=== PATIENT | male | born 1975 | race Caucasian/White ===

== ENCOUNTER 2017-01-12 10:25 | Emergency (ER) | payer BC, OTHER ==
[2017-01-12 10:30] VITALS: BP 134/82
[2017-01-12] MEDS ORDERED: Tetan/Diph/Pertus SYR(Tdap)* 0.5 ML SYR(BOOSTRIX) use SYR IM ONE (11:39)
[2017-01-12] MEDS ORDERED: Ibuprofen TAB* 400 MG PO ONE (11:39)
--- NOTE | 2017-01-12 12:32 | ED ---
Laceration/Wound HPI - HPI Summary HPI Summary: Patient works in [employer] [facility] [facility] [employer] and cut his left palm on the serated edge of a seran wrap contiainer. He had immediate pain and controlled bleeding with direct pressure. His tetanus is not up to date and he has not taken any medication for pain. He has movement in all digits. - History of Current Complaint Stated Complaint: LT HAND LAC Time Seen by Provider: 01/12/17 10:36 Hx Obtained From: Patient Mechanism of Injury: Sharp/Blunt Trauma Onset/Duration: Sudden Onset Aggravating: Movement Alleviating: Compression Timing: Constant Onset Severity: Moderate Current Severity: Mild Pain Intensity: 3 Associated Signs & Symptoms: Pain Related Hx: Dominant Hand (Left) - Allergy/Home Medications Allergies/Adverse Reactions: Allergies Allergy/AdvReac Type Severity Reaction Status Date / Time No Known Allergies Allergy Verified 09/02/13 14:03 PMH/Surg Hx/FS Hx/Imm Hx Infectious Disease History: No Infectious Disease History: Denies: Traveled Outside the in Last 30 Days - Family History Known Family History: Positive: None - Social History Occupation: Employed Full-time Lives: With Family Alcohol Use: Occasionally Substance Use Type: Reports: None Smoking Status (MU): Former Smoker Review of Systems Positive: Other - 1.5 cm laceration to palmar aspect at the base of the left fifth digit Negative: Weakness, Paresthesia, Numbness All Other Systems Reviewed And Are Negative: Yes Physical Exam Triage Information Reviewed: Yes Vital Signs On Initial Exam: Initial Vitals Temp Pulse Resp BP Pulse Ox 98.3 F 104 16 134/82 99 01/12/17 10:28 01/12/17 10:28 01/12/17 10:28 01/12/17 10:28 01/12/17 10:28 Vital Signs Reviewed: Yes Appearance: Positive: Well-Appearing, Well-Nourished, Pain Distress Skin: Positive: Warm, Skin Color Reflects Adequate Perfusion, Dry, Tender - 1.5 cm laceration to palmar aspect at the base of the left fifth digit, Soft Head/Face: Positive: Normal Head/Face Inspection Eyes: Positive: EOMI, ARVIND, Conjunctiva Clear ENT: Positive: Hearing grossly normal Respiratory/Lung Sounds: Positive: Breath Sounds Present Cardiovascular: Positive: RRR Musculoskeletal: Positive: Strength/ROM Intact - FROM all digits Neurological: Positive: Sensory/Motor Intact, Alert, Oriented to Person Place, Time, NV Bundle Intact Distally Psychiatric: Positive: Affect/Mood Appropriate AVPU Assessment: Alert - [place] Coma Scale Coma Scale Total: 15 Procedures - Laceration/Wound Repair 1 Location: upper extremity - palmar aspect at the base of the left fifth digit Description: Linear Anesthesia: Local, 2.0%, Lido Length, Depth and Shape: 1.5cm long, 3mm wide, 3mm deep Betadine Prep?: No Irrigated w/ Saline (ccs): 200 Laceration/Wound Explored: clean Closure: Single Layer Debridement: minimal Suture Type: Nylon - 5.0 Number of Sutures: 7 Layer Closure?: No Sterile Dressing Applied?: Yes Diagnostics - Vital Signs Vital Signs Temp Pulse Resp BP Pulse Ox 01/12/17 10:28 98.3 F 104 16 134/82 99 - Laboratory Lab Statement: Any lab studies that have been ordered have been reviewed, and results considered in the medical decision making process. Laceration Repair Course/Dx - Differential Dx Differental Diagnoses: Abrasion, Avulsion, Cellulitis, Dehiscence, Hematoma, Laceration, Puncture Wound - Clinical Impression Provider Diagnoses: Laceration Discharge - Discharge Plan Condition: Stable Disposition: HOME Patient Education Materials: Finger Laceration (ED) Referrals: [facility] [Outside] Additional Instructions: Keep your dressing clean, dry and in place for the next 24 hours. You may then remove and shower. Pat dry and cover with a clean, dry band-aid if you are going to be in a "dirty" environment, otherwise it can remain open to air. Do not soak the wound in any body of water until the sutures are removed. Elevate the hand above your heart and use Ibuprofen 600mg three times daily with meals for the next 5-7 days to reduce pain and swelling. Follow-up with your primary care provider or return to the emergency department in 10-12 days for suture removal. Return to the emergency department sooner if your symptoms worsen
== END 2017-01-12 12:52 | disposition home or self-care (01) ==
LOC: ED 10:25
DX: S61.412A Laceration without foreign body of left hand, initial encounter (principal); W45.8XXA Other foreign body or object entering through skin, initial encounter; Y93.9 Activity, unspecified; Y92.233 Cafeteria of hospital as the place of occurrence of the external cause; Y99.9 Unspecified external cause status
CPT/HCPCS: 12001; 99281

== ENCOUNTER 2017-01-26 09:49 | Emergency (ER) | payer OTHER ==
[2017-01-26 09:53] VITALS: BP 122/82
--- NOTE | 2017-01-26 10:42 | ED ---
ED Suture/Wound Check - HPI Summary HPI Summary: 42 male presents requesting suture removal. Patient had 7 sutures in left palmar hand at PIP joint. Patient has no complaints at this time, states he thinks it healed nicely. Denies redness, swelling and discharge. Was told to have suture removed after 12 days. Today is day 14. Denies numbness/tingling, weakness. - History Of Current Complaint Chief Complaint: EDLacSutureRecheck Stated Complaint: REMOVAL OF STITCHES Time Seen by Provider: 01/26/17 10:02 Hx Obtained From: Patient Pain Intensity: 0 Pain Scale Used: 0-10 Numeric Procedure Type: sutures Surgery Date: 01/12/17 - Allergies/Home Medications Allergies/Adverse Reactions: Allergies Allergy/AdvReac Type Severity Reaction Status Date / Time No Known Allergies Allergy Verified 09/02/13 14:03 PMH/Surg Hx/FS Hx/Imm Hx Endocrine/Hematology History: Denies: Hx Diabetes Cardiovascular History: Denies: Hx Hypertension Respiratory History: Denies: Hx Asthma - Surgical History Surgery Procedure, Year, and Place: none Infectious Disease History: No Infectious Disease History: Denies: Traveled Outside the [place] in Last 30 Days - Family History Known Family History: Positive: None - Social History Alcohol Use: Occasionally Substance Use Type: Reports: None Smoking Status (MU): Former Smoker Review of Systems Constitutional: Negative Cardiovascular: Negative Respiratory: Negative Gastrointestinal: Negative Positive: Other - mild soreness at area of wound Skin: Negative Neurological: Negative Psychological: Normal All Other Systems Reviewed And Are Negative: Yes Physical Exam Triage Information Reviewed: Yes Vital Signs On Initial Exam: Initial Vitals Temp Pulse Resp BP Pulse Ox 98.3 F 102 18 122/82 96 01/26/17 09:50 01/26/17 09:50 01/26/17 09:50 01/26/17 09:50 01/26/17 09:50 tachycardia noted, however normal on physical exam of 89bpm Vital Signs Reviewed: Yes Appearance: Positive: Well-Appearing Skin: Positive: Warm, Skin Color Reflects Adequate Perfusion - <2 second cap refill, Dry. Negative: Pale, Weeping Skin/Lesions, Erythema @ Head/Face: Positive: Normal Head/Face Inspection Eyes: Positive: Conjunctiva Clear ENT: Positive: Normal ENT inspection, Hearing grossly normal Neck: Positive: Supple, Nontender, No Lymphadenopathy Respiratory/Lung Sounds: Positive: Clear to Auscultation, Breath Sounds Present Cardiovascular: Positive: Normal, RRR, Pulses are Symmetrical in both Upper and Lower Extremities Musculoskeletal: Positive: Normal, Strength/ROM Intact, Pain @ - minimal pain on palpation of area of healing laceration, Other - appears to being healing nicely, 7 sutures removed without complication. lacearation is well approximated , without erythema, discharge, and edema.. Negative: Edema Left, Edema Right Neurological: Positive: Normal, Sensory/Motor Intact, Alert, Oriented to Person Place, Time, CN Intact II-III, Reflexes Intact, NV Bundle Intact Distally Psychiatric: Positive: Normal Diagnostics - Vital Signs Vital Signs Temp Pulse Resp BP Pulse Ox 01/26/17 09:50 98.3 F 102 18 122/82 96 - Laboratory Lab Statement: Any lab studies that have been ordered have been reviewed, and results considered in the medical decision making process. Course/Dx - Course Course Of Treatment: 7 sutures removed from base of left thumb without complication. wound appears to be healed nicely. patient is aware of worsening signs and symptoms to be aware of. - Differential Diagnoses Differential Diagnoses: Cellulitis, Dehiscence, Healing Wound, Suture Removal - Clinical Impression Provider Diagnoses: Encounter for removal of sutures Discharge - Discharge Plan Condition: Improved Disposition: HOME Patient Education Materials: Stitches Removal (ED) Referrals: No Primary Care Phys,NOPCP [Primary Care Provider] - [facility] [place] [facility] [Outside] Additional Instructions: IF you develop signs of swelling, redness, or discharge please seek medical attention to rule out infection. Be gently with the wound and the area as it is still healing. If the wound appears to be re-opening please return to ED.
== END 2017-01-26 11:20 | disposition home or self-care (01) ==
LOC: ED 09:49
DX: Z48.02 Encounter for removal of sutures (principal)

== ENCOUNTER → 2017-05-12 19:27 | Emergency (ER) | payer BC, OTHER ==
[2017-05-12 20:20] LABS: Hematocrit 48 % (42-52); Hemoglobin 16.6 g/dl (14.0-18.0); Mean Corpuscular HGB Conc 34 g/dl (31-36); Mean Corpuscular Hemoglobin 31 pg (27-31); Mean Corpuscular Volume 90 fL (80-94); Mean Platelet Volume 8 um3 (7.4-10.4); Red Blood Count 5.35 10^6/ul (4.0-5.4); Red Cell Distribution Width 13 % (10.5-15); White Blood Count 10.6 10^3/ul (3.5-10.8)
[2017-05-12 20:31] LABS: ALT 16 U/L (7-52); AST 15 U/L (13-39); Albumin 4.3 g/dL (3.2-5.2); Alkaline Phosphatase 35 U/L (34-104); Anion Gap 11 mmol/L (2-11); BUN/Creatinine Ratio 9.8 (8-20); Blood Urea Nitrogen 9 mg/dL (6-24); CO2 Carbon Dioxide 23 mmol/L (22-32); Calcium 9.3 mg/dL (8.6-10.3); Chloride 100 mmol/L (101-111); Creatine Kinase 189 U/L (10-223); EGFR African American 116.6 (>60); EGFR Non-African American 90.7 (>60); Globulin 2.6 g/dL (2-4); Glucose 95 mg/dL (70-100); Potassium 3.4 mmol/L (3.5-5.0); Sodium 134 mmol/L (133-145); Total Protein 6.9 g/dL (6.4-8.9)
[2017-05-12 20:55] LABS: Acetaminophen < 15 mcg/mL; Alcohol < 10 mg/dL (<10); Salicylate < 2.50 mg/dL (<30)
[2017-05-12 21:01] LABS: Urine Bilirubin Negative (Negative); Urine Glucose Negative (Negative); Urine Nitrite Negative (Negative)
[2017-05-12 21:06] LABS: Benzodiazepine Urine Screen None Detected (None Detect)
--- NOTE | 2017-05-12 22:38 | ED ---
Ynes Alegria Thomas, scribed for Robbin Salgado MD on 05/12/17 at 2000 . Psychiatric Complaint - HPI Summary HPI Summary: Pt is a 42 y/o M presenting to the ED with psychiatric complaints and insomnia. He notes that he is tired and that he did not sleep since 4am yesterday. He says that it is not normal for him to be unable to get to sleep. Twice this week he has been unable to sleep for 36+ hours. Additionally c/o "crazy thoughts ", auditory hallucinations, palpitations, paranoia, decreased appetite. The pt denies any suicide attempts, abdominal pain. He says he used to drink heavily on and off and that he is drinking now. He recently began using tobacco again. PMHx: depression. He does not have FHx of depression, bipolar disorder. He used to take Zyprexa. He is not currently on antidepressants. He notes that he has been hospitalized before. He has not eaten today. - History Of Current Complaint Chief Complaint: EDMentalHealth Time Seen by Provider: 05/12/17 19:45 Hx Obtained From: Patient Onset/Duration: Lasting Days - sleeping difficulties began a week ago Timing: Intermittent Episode Lasting - 2 episodes of 36-hour no sleep this week Character: Manic Associated Signs And Symptoms: Positive: Paranoid Behavior, Sleep Disturbance, Appetite Change Related History: Positive For: Prior Psychiatric Issues - Depression - Allergies/Home Medications Allergies/Adverse Reactions: Allergies Allergy/AdvReac Type Severity Reaction Status Date / Time No Known Allergies Allergy Verified 09/02/13 14:03 PMH/Surg Hx/FS Hx/Imm Hx Previously Healthy: No Endocrine/Hematology History: Denies: Hx Diabetes Cardiovascular History: Denies: Hx Hypertension Respiratory History: Denies: Hx Asthma - Surgical History Surgery Procedure, Year, and Place: none Infectious Disease History: No Infectious Disease History: Denies: Traveled Outside the [place] in Last 30 Days - Family History Known Family History: Positive: Other - NEG: depression, bipolar Negative: Hypertension, Diabetes - Social History Alcohol Use: Occasionally Substance Use Type: Reports: None Hx Tobacco Use: Yes Smoking Status (MU): Current Every Day Smoker - resumed smoking recently Review of Systems Positive: Other - POS: decreased appetite Positive: Palpitations Negative: Abdominal Pain Psychological: Other - POS: sleeping difficulties, "crazy thoughts", auditory hallucinations, paranoia. NEG: suicide attempts All Other Systems Reviewed And Are Negative: Yes Physical Exam - Summary Physical Exam Summary: The patient is well-nourished in no acute distress and in no acute pain. The skin is warm and dry and skin color reflects adequate perfusion. No cuts on arms. HEENT: The head is normocephalic and atraumatic. The pupils are equal and reactive. The conjunctivae are clear and without drainage. Nares are patent and without drainage. Mouth reveals moist mucous membranes and the throat is without erythema and exudate. Neck is supple with full range of motion and non-tender. There are no carotid bruits. There is no neck vein distension. Respiratory: Chest is non-tender. Lungs are clear to auscultation and breath sounds are symmetrical and equal. Cardiovascular: Regular rhythm. Rate is tachycardic. There is no murmur or rub auscultated. There is no peripheral edema and pulses are symmetrical and equal. Abdomen: The abdomen is soft and non-tender. There are normal bowel sounds heard in all four quadrants and there is no organomegaly palpated. Musculoskeletal: There is no back pain noted. Extremities are non-tender with full range of motion. There is good capillary refill. There is no peripheral edema or calf tenderness elicited. Neurological: Patient is alert and oriented to person, place and time. The patient has symmetrical motor strength in all four extremities. Cranial nerves are grossly intact. Deep tendon reflexes are symmetrical and equal in all four extremities. Psychiatric: Some flight of ideas. Triage Information Reviewed: Yes Vital Signs On Initial Exam: Initial Vitals Temp Pulse Resp BP Pulse Ox 98.4 F 121 19 151/93 97 05/12/17 19:33 05/12/17 19:33 05/12/17 19:33 05/12/17 19:33 05/12/17 19:33 Vital Signs Reviewed: Yes Diagnostics - Vital Signs Vital Signs Temp Pulse Resp BP Pulse Ox 05/12/17 19:33 98.4 F 121 19 151/93 97 - Laboratory Lab Results: Lab Results 05/12/17 05/12/17 05/12/17 Range/Units 20:11 20:11 20:42 WBC 10.6 (3.5-10.8) 10^3/ul RBC 5.35 (4.0-5.4) 10^6/ul Hgb 16.6 (14.0-18.0) g/dl Hct 48 (42-52) % MCV 90 (80-94) fL MCH 31 (27-31) pg MCHC 34 (31-36) g/dl RDW 13 (10.5-15) % Plt Count 270 (150-450) 10^3/ul MPV 8 (7.4-10.4) um3 Neut % (Auto) 56.6 (38-83) % Lymph % (Auto) 30.4 (25-47) % [place] % (Auto) 10.5 H (1-9) % Eos % (Auto) 1.8 (0-6) % Baso % (Auto) 0.7 (0-2) % Absolute Neuts (auto) 6.0 (1.5-7.7) 10^3/ul Absolute Lymphs (auto) 3.2 (1.0-4.8) 10^3/ul Absolute Monos (auto) 1.1 H (0-0.8) 10^3/ul Absolute Eos (auto) 0.2 (0-0.6) 10^3/ul Absolute Basos (auto) 0.1 (0-0.2) 10^3/ul Absolute Nucleated RBC 0.02 10^3/ul Nucleated RBC % 0.2 Sodium 134 (133-145) mmol/L Potassium 3.4 L (3.5-5.0) mmol/L Chloride 100 L (101-111) mmol/L Carbon Dioxide 23 (22-32) mmol/L Anion Gap 11 (2-11) mmol/L BUN 9 (6-24) mg/dL Creatinine 0.92 (0.67-1.17) mg/dL Est GFR ( Amer) 116.6 (>60) Est GFR (Non-Af Amer) 90.7 (>60) BUN/Creatinine Ratio 9.8 (8-20) Glucose 95 (70-100) mg/dL Calcium 9.3 (8.6-10.3) mg/dL Total Bilirubin 0.60 (0.2-1.0) mg/dL AST 15 (13-39) U/L ALT 16 (7-52) U/L Alkaline Phosphatase 35 (34-104) U/L Total Creatine Kinase 189 (10-223) U/L Total Protein 6.9 (6.4-8.9) g/dL Albumin 4.3 (3.2-5.2) g/dL Globulin 2.6 (2-4) g/dL Albumin/Globulin Ratio 1.7 (1-3) TSH 1.80 (0.34-5.60) mcIU/mL Urine Color Ni Urine Appearance Cloudy Urine pH 5.0 (5-9) Ur Specific [place] 1.020 (1.010-1.030) Urine Protein Negative (Negative) Urine Ketones 2+ H (Negative) Urine Blood Negative (Negative) Urine Nitrate Negative (Negative) Urine Bilirubin Negative (Negative) Urine Urobilinogen Negative (Negative) Ur Leukocyte Esterase Negative (Negative) Urine Glucose Negative (Negative) Salicylates < 2.50 (<30) mg/dL Urine Opiates Screen (None Detect) Acetaminophen < 15 mcg/mL Ur Barbiturates Screen (None Detect) Ur Phencyclidine Scrn (None Detect) Ur Amphetamines Screen (None Detect) U Benzodiazepines Scrn (None Detect) Urine Cocaine Screen (None Detect) U Cannabinoids Screen (None Detect) Serum Alcohol < 10 (<10) mg/dL 05/12/17 Range/Units 20:42 WBC (3.5-10.8) 10^3/ul RBC (4.0-5.4) 10^6/ul Hgb (14.0-18.0) g/dl Hct (42-52) % MCV (80-94) fL MCH (27-31) pg MCHC (31-36) g/dl RDW (10.5-15) % Plt Count (150-450) 10^3/ul MPV (7.4-10.4) um3 Neut % (Auto) (38-83) % Lymph % (Auto) (25-47) % [place] % (Auto) (1-9) % Eos % (Auto) (0-6) % Baso % (Auto) (0-2) % Absolute Neuts (auto) (1.5-7.7) 10^3/ul Absolute Lymphs (auto) (1.0-4.8) 10^3/ul Absolute Monos (auto) (0-0.8) 10^3/ul Absolute Eos (auto) (0-0.6) 10^3/ul Absolute Basos (auto) (0-0.2) 10^3/ul Absolute Nucleated RBC 10^3/ul Nucleated RBC % Sodium (133-145) mmol/L Potassium (3.5-5.0) mmol/L Chloride (101-111) mmol/L Carbon Dioxide (22-32) mmol/L Anion Gap (2-11) mmol/L BUN (6-24) mg/dL Creatinine (0.67-1.17) mg/dL Est GFR ( Amer) (>60) Est GFR (Non-Af Amer) (>60) BUN/Creatinine Ratio (8-20) Glucose (70-100) mg/dL Calcium (8.6-10.3) mg/dL Total Bilirubin (0.2-1.0) mg/dL AST (13-39) U/L ALT (7-52) U/L Alkaline Phosphatase (34-104) U/L Total Creatine Kinase (10-223) U/L Total Protein (6.4-8.9) g/dL Albumin (3.2-5.2) g/dL Globulin (2-4) g/dL Albumin/Globulin Ratio (1-3) TSH (0.34-5.60) mcIU/mL Urine Color Urine Appearance Urine pH (5-9) Ur Specific [place] (1.010-1.030) Urine Protein (Negative) Urine Ketones (Negative) Urine Blood (Negative) Urine Nitrate (Negative) Urine Bilirubin (Negative) Urine Urobilinogen (Negative) Ur Leukocyte Esterase (Negative) Urine Glucose (Negative) Salicylates (<30) mg/dL Urine Opiates Screen None detected (None Detect) Acetaminophen mcg/mL Ur Barbiturates Screen None detected (None Detect) Ur Phencyclidine Scrn None detected (None Detect) Ur Amphetamines Screen None detected (None Detect) U Benzodiazepines Scrn None detected (None Detect) Urine Cocaine Screen None detected (None Detect) U Cannabinoids Screen None detected (None Detect) Serum Alcohol (<10) mg/dL Result Diagrams: 05/12/17 20:11 05/12/17 20:11 Lab Statement: Any lab studies that have been ordered have been reviewed, and results considered in the medical decision making process. - EKG 20:16 Cardiac Rate: NL - 86 bpm EKG Interpretation: Sinus rhythm. Normal axis. Nonspecific ST changes. No STEMI Course/Dx - Course Assessment/Plan: Pt is a 42 y/o M presenting to the ED with psychiatric complaints and insomnia.Twice this week he has been unable to sleep for 36+ hours. Additionally c/o "crazy thoughts", auditory hallucinations, palpitations , paranoia, decreased appetite. The pt denies any suicide attempts, abdominal pain. He says he used to drink heavily on and off and that he is drinking now. He recently began using tobacco again. PMHx: depression. He does not have FHx of depression, bipolar disorder. He used to take Zyprexa. He is not currently on antidepressants. He notes that he has been hospitalized before. He has not eaten today. EKG reveals no STEMI. Medically cleared for MHE at 2114. Pt will be signed out to Dr. Elliott, pending dispo, awaiting MHE. - Differential Dx/Clinical Impression Differential Diagnosis/HQI/PQRI: Positive: Bipolar Disorder, Depression Provider Diagnosis: Mood disorder, Depression Discharge - Discharge Plan Condition: Stable Disposition: OTHER Discharge Disposition Comment: Pt will be signed out to Dr. Elliott, pending dispo, awaiting MHE. Referrals: Erasmo Angeles MD [Primary Care Provider] - The documentation as recorded by the Ynes moreland Thomas accurately reflects the service I personally performed and the decisions made by me, Robbin Salgado MD.
[2017-05-13 01:39] VITALS: BP 133/84
--- NOTE | 2017-05-13 12:32 | PN ---
ED Flex Patient Progress Note Subjective: This is a 42 year-old M who is pending discharge to home after presenting to the ED with chief complaint of insomnia. Had been stable on olanzapine. He is awaiting intake at [facility]. Objective: Calm, cooperative, denies SI or HI. Assessment: Insomnia Plan: Rx for olanzapine 10mg PO qhs. F/U with [facility]. Vital Signs Temp Pulse Resp BP Pulse Ox 98.7 F 122 16 133/84 95 05/13/17 01:39 05/13/17 01:39 05/13/17 01:39 05/13/17 01:39 05/13/17 01:39 Lab Results - Entire Visit 05/12/17 05/12/17 05/12/17 20:42 20:42 20:11 WBC RBC Hgb Hct MCV MCH MCHC RDW Plt Count MPV Neut % (Auto) Lymph % (Auto) [place] % (Auto) Eos % (Auto) Baso % (Auto) Absolute Neuts (auto) Absolute Lymphs (auto) Absolute Monos (auto) Absolute Eos (auto) Absolute Basos (auto) Absolute Nucleated RBC Nucleated RBC % Sodium 134 Potassium 3.4 L Chloride 100 L Carbon Dioxide 23 Anion Gap 11 BUN 9 Creatinine 0.92 Est GFR ( Amer) 116.6 Est GFR (Non-Af Amer) 90.7 BUN/Creatinine Ratio 9.8 Glucose 95 Calcium 9.3 Total Bilirubin 0.60 AST 15 ALT 16 Alkaline Phosphatase 35 Total Creatine Kinase 189 Total Protein 6.9 Albumin 4.3 Globulin 2.6 Albumin/Globulin Ratio 1.7 TSH 1.80 Urine Color Ni Urine Appearance Cloudy Urine pH 5.0 Ur Specific [place] 1.020 Urine Protein Negative Urine Ketones 2+ H Urine Blood Negative Urine Nitrate Negative Urine Bilirubin Negative Urine Urobilinogen Negative Ur Leukocyte Esterase Negative Urine Glucose Negative Salicylates < 2.50 Urine Opiates Screen None detected Acetaminophen < 15 Ur Barbiturates Screen None detected Ur Phencyclidine Scrn None detected Ur Amphetamines Screen None detected U Benzodiazepines Scrn None detected Urine Cocaine Screen None detected U Cannabinoids Screen None detected Serum Alcohol < 10 05/12/17 20:11 WBC 10.6 RBC 5.35 Hgb 16.6 Hct 48 MCV 90 MCH 31 MCHC 34 RDW 13 Plt Count 270 MPV 8 Neut % (Auto) 56.6 Lymph % (Auto) 30.4 [place] % (Auto) 10.5 H Eos % (Auto) 1.8 Baso % (Auto) 0.7 Absolute Neuts (auto) 6.0 Absolute Lymphs (auto) 3.2 Absolute Monos (auto) 1.1 H Absolute Eos (auto) 0.2 Absolute Basos (auto) 0.1 Absolute Nucleated RBC 0.02 Nucleated RBC % 0.2 Sodium Potassium Chloride Carbon Dioxide Anion Gap BUN Creatinine Est GFR ( Amer) Est GFR (Non-Af Amer) BUN/Creatinine Ratio Glucose Calcium Total Bilirubin AST ALT Alkaline Phosphatase Total Creatine Kinase Total Protein Albumin Globulin Albumin/Globulin Ratio TSH Urine Color Urine Appearance Urine pH Ur Specific [place] Urine Protein Urine Ketones Urine Blood Urine Nitrate Urine Bilirubin Urine Urobilinogen Ur Leukocyte Esterase Urine Glucose Salicylates Urine Opiates Screen Acetaminophen Ur Barbiturates Screen Ur Phencyclidine Scrn Ur Amphetamines Screen U Benzodiazepines Scrn Urine Cocaine Screen U Cannabinoids Screen Serum Alcohol
== END ==
LOC: ED 19:27
DX: F39 Unspecified mood [affective] disorder (principal); F32.9 Major depressive disorder, single episode, unspecified; R00.2 Palpitations; G47.00 Insomnia, unspecified; Z04.8 Encounter for examination and observation for other specified reasons; F17.210 Nicotine dependence, cigarettes, uncomplicated
CPT/HCPCS: 36415; 80053; 80307; 80320; 80329; 81003; 82550; 84443; 85025; 93005; 99285; G0480

== ENCOUNTER 2019-09-07 11:33 | Emergency (ER) | payer BC ==
[2019-09-07 11:47] VITALS: BP 141/88
--- NOTE | 2019-09-07 12:12 | UC ---
Shoulder Pain HPI - HPI Summary HPI Summary: 2 WEEKS OF LOW LEVEL, INTERMITTENT RIGHT SHOULDER DISCOMFORT THAT GOT SUDDENLY WORSE 2 DAYS AGO. NOW IS UNABLE TO MOVE WITHOUT PAIN. 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 - History of Current Complaint Chief Complaint: UCUpperExtremity Stated Complaint: SHOULDER PAIN Time Seen by Provider: 09/07/19 11:57 Hx Obtained From: Patient Onset/Duration: Sudden Onset, Lasting Days, Still Present Timing: Constant Severity Initially: Moderate Severity Currently: Moderate Location Of Pain: Is Discrete @ - RIGHT SHOULDER Pain Intensity: 7 Pain Scale Used: 0-10 Numeric Character: Sharp Aggravating Factor(s): Movement Alleviating Factor(s): Nothing Associated Signs And Symptoms: Positive: Negative Related History: Dominant Hand Left - Allergies/Home Medications Allergies/Adverse Reactions: Allergies Allergy/AdvReac Type Severity Reaction Status Date / Time No Known Allergies Allergy Verified 09/07/19 11:47 PMH/Surg Hx/FS Hx/Imm Hx Previously Healthy: Yes - Surgical History Surgical History: Yes Surgery Procedure, Year, and Place: addenoids - Family History Known Family History: Positive: None, Other - NEG: depression, bipolar Negative: Hypertension, Diabetes - Social History Alcohol Use: Occasionally Substance Use Type: None Smoking Status (MU): Current Every Day Smoker Type: Cigarettes Amount Used/How Often: 1/2 PPD Review of Systems All Other Systems Reviewed And Are Negative: Yes Constitutional: Positive: Negative Skin: Positive: Negative Respiratory: Positive: Negative Cardiovascular: Positive: Negative Gastrointestinal: Positive: Negative Musculoskeletal: Positive: Arthralgia, Decreased ROM Physical Exam Triage Information Reviewed: Yes Appearance: Well-Appearing, No Pain Distress, Well-Nourished Vital Signs: Initial Vital Signs Temp 98.8 F 09/07/19 11:43 Pulse 96 09/07/19 11:43 Resp 16 09/07/19 11:43 BP 141/88 09/07/19 11:43 Pulse Ox 99 09/07/19 11:43 Vital Signs Reviewed: Yes Eyes: Positive: Conjunctiva Clear ENT: Positive: Hearing grossly normal Neck: Positive: Supple Respiratory: Positive: No respiratory distress, No accessory muscle use Cardiovascular: Positive: Pulses Normal Abdomen Description: Positive: Soft Musculoskeletal: Positive: No Edema, ROM Limited @ - RIGHT SHOULDER, Other: - TTP RIGHT ANTERIOR SHOULDER. UNABLE TO DO COMPLETE EXAM DUE TO PT DISCOMFORT Neurological: Positive: Alert Psychological: Positive: Age Appropriate Behavior Skin: Negative: Rashes Diagnostics - Radiology RIGHT SHOULDER XRAYS Radiology Interpretation Completed By: Radiologist Summary of Radiographic Findings: 1. Supraspinous calcific tendinosis Shoulder Course/Dx - Course Course Of Treatment: X-RAYS SHOW SUPRASPINOUS CALCIFIC TENDINOSIS. SLING APPLIED BY RN. NAPROXEN NEEDED FOR PAIN. FOLLOW-UP WITH ORTHOPEDICS. - Differential Dx/Diagnosis Provider Diagnosis: Calcific tendonitis of right shoulder Discharge ED - Sign-Out/Discharge Documenting (check all that apply): Patient Departure All imaging exams completed and their final reports reviewed: Yes - Discharge Plan Condition: Stable Disposition: HOME Prescriptions: Naproxen [Naproxen 500 mg tab] 500 mg PO BID PRN #30 tablet PRN Reason: Pain Patient Education Materials: Calcific Tendinitis (ED) Forms: *Work Release Referrals: Isacc Dave MD [Medical Doctor] - 3 Days Erasmo Angeles MD [Primary Care Provider] - Additional Instructions: CALCIFIC TENDINITIS/TENDINOSIS YOUR XRAY SHOWS A CALCIUM DEPOSIT IN THE TENDONS OF YOUR SHOULDER. THIS COULD BE CONTRIBUTING TO YOUR SYMPTOMS. SUCCESSFUL MANAGEMENT OFTEN CONSISTS OF MEDICATION, A SLING AND PHYSICAL THERAPY. OCCASIONALLY INJECTIONS MAY BE INDICATED. IN RARE CASES SURGERY MAY BE CONSIDERED. The onset of symptoms is usually spontaneous and is associated with the rapid development of excruciating shoulder pain and inability to sleep. The patient is exceedingly tender to palpation and has extreme pain with any attempted motion of the shoulder. There may be warmth and fullness. Elbow and hand motion are normal and circulation/neurologic examination is intact. FOLLOW-UP WITH ORTHO FOR FURTHER EVALUATION AND MANAGEMENT. - Billing Disposition and Condition Condition: STABLE Disposition: Home
== END 2019-09-07 13:20 | disposition home or self-care (01) ==
LOC: UCEAST 11:33
DX: M75.31 Calcific tendinitis of right shoulder (principal); F17.210 Nicotine dependence, cigarettes, uncomplicated
CPT/HCPCS: 99212; G0463